=== PATIENT | male | born 1975 | race African-American/Black ===

== ENCOUNTER 2017-09-03 16:27 | Emergency (ER) | payer OTHER ==
[~2017-09-03] VITALS: Ht 170.2 cm; Wt 141.1 kg
[2017-09-03 16:55] VITALS: Ht 170.2 cm; Wt 141.1 kg
[2017-09-03 20:19] VITALS: BP 154/110
== END 2017-09-03 20:19 | disposition home or self-care (01) ==
LOC: ED 16:27
DX: M77.51 Other enthesopathy of right foot and ankle (principal); M76.9 Unspecified enthesopathy, lower limb, excluding foot; I10 Essential (primary) hypertension; E11.9 Type 2 diabetes mellitus without complications; Z79.84 Long term (current) use of oral hypoglycemic drugs

== ENCOUNTER 2018-05-14 23:40 | Emergency (ER) | payer OTHER ==
[~2018-05-14] VITALS: Ht 170.2 cm; Wt 138.0 kg
[2018-05-14 23:56] VITALS: Ht 170.2 cm; Wt 138.0 kg
[2018-05-15 04:22] VITALS: BP 118/82
== END 2018-05-15 04:22 | disposition home or self-care (01) ==
LOC: ED 23:40
DX: M25.522 Pain in left elbow (principal); M79.632 Pain in left forearm; E11.9 Type 2 diabetes mellitus without complications
CPT/HCPCS: J1100; J1885